=== PATIENT | male | born 1975 | race Caucasian/White ===

== ENCOUNTER 2017-09-14 06:23 | Day surgery (SDC) | payer OTHER ==
[2017-09-13 10:42] VITALS: BMI 34.2
--- NOTE | 2017-09-13 16:38 | HP ---
HISTORY OF PRESENT ILLNESS: Mr. Lazo is a pleasant 42-year-old man who presents for evaluation o f interscapular posterior neck pains for the last 10 years, treated with PT and chiropractic, he has had lower back problems as well. MRI of the C-spine on outside facility reveals moderate to severe c anal stenosis and neural foraminal narrowing at C6-C7 secondary to disk osteophyte complex, which fit s his symptoms rather well. He denies any gait symptoms or arm problems of significant nature. PAST MEDICAL HISTORY: Significant for knee and neck problems. CURRENT MEDICATIONS: Viagra, Flexeril, Robaxin. ALLERGIES: No known drug allergies. PAST SURGICAL HISTORY: Three separate knee surgeries, two on the right, one on the left. ALLERGIES: No known drug allergies. PHYSICAL EXAMINATION: NEUROLOGIC: The patient is alert and oriented x3. Gait is mildly antalgic. Reflexes are equal and present bilaterally at the patella. ASSESSMENT: Cervical radiculopathy. PLAN: Dr. Gonzales met with the patient, reviewed imaging and ultimately advocated for a C6-C7 ACDF. H e explained to the patient the risks, benefits, and alternatives to the procedure. The patient expre ssed understanding and would like to move forward with surgery as discussed. I do believe the patien t is mentally competent and capable of making medical decisions for himself and we will move forward with surgery as planned. Russ Torres PA-C, dictating under Dr. Gonzales.
[2017-09-14] MEDS ORDERED: Fentanyl 100 MCG/2 ML VIAL ONE (06:48)
[2017-09-14] MEDS ORDERED: Midazolam HCl 2 mg/2 ml Vial ONE ×2 (06:48→07:48)
[2017-09-14] MEDS ORDERED: Thrombin 5000 UNITS/5 ML VIAL ONE (06:55)
[2017-09-14] MEDS ORDERED: CEFAZOLIN/Water 2 GM/20 ML SYRINGE ONE ×2 (07:01→13:30)
--- NOTE | 2017-09-14 10:33 | OP ---
DATE OF PROCEDURE: 09/14/2017 SURGEON: Omid Gonzales M.D. BREAKER MACHINE OPERATOR: Russ Torres PA-C INDICATION: Pain. DIAGNOSIS: Cervical radiculopathy. PROCEDURE: Anterior cervical discectomy and fusion C6-7. ANESTHESIA: General. TECHNIQUE: The patient was brought into the operating room and placed under general anesthesia. He was placed on the table in a supine position. A transverse incision was planned over the lateral asp ect of the neck on the right. After prepping and draping and after an appropriate operative pause, t he incision was created. The underlying platysma muscle was identified and incised. A blunt tissue plane anterior to the sternocleidomastoid muscle was used to gain access to the prevertebral space. Self-retaining retractors were placed into the wound. Annulotomy was performed and all disk material as well as anterior and posterior osteophytes were removed. After complete decompression, a 7 mm lo rdotic PEEK cage packed with allograft and autograft material was placed in the interbody space. An anterior cervical plate was then fashioned in front of the spine and secured with a total of 4 fixed screws. Midline and lateral structures were inspected and found to be free from significant trauma. The wound was irrigated. Hemostasis was maintained throughout. The wound was then closed in anatom ic layers and a pressure dressing was applied. There were no known procedural complications.
[2017-09-14] MEDS ORDERED: HYDROcodone/Acetaminophen 5/325 mg Tablet ONE (12:59)
[2017-09-14] MEDS ORDERED: Tamsulosin HCl 0.4 MG CAP ONE (13:19)
[2017-09-14] MEDS ORDERED: Ketorolac Tromethamine 30 MG/ML VIAL ONE (15:41)
[2017-09-14] MEDS ORDERED: Lidocaine 1% PF 5 ML VIAL ONE (15:41)
[2017-09-14] MEDS ORDERED: Ondansetron HCl/PF 4 MG/2 ML Vial ONE (15:41)
[2017-09-14] MEDS ORDERED: Dexamethasone 20 MG/5 ML VIAL ONE (15:41)
[2017-09-14] MEDS ORDERED: Propofol 200 MG/20 ML VIAL ONE (15:41)
[2017-09-14] MEDS ORDERED: Metoclopramide HCl 10 MG/2 ML VIAL ONE (15:41)
[2017-09-14] MEDS ORDERED: Glycopyrrolate 0.2 MG/ML 5 ML SYRINGE ONE (15:41)
[2017-09-14] MEDS ORDERED: diphenhydrAMINE 50 MG/ML VIAL ONE (15:41)
== END 2017-09-14 13:50 | disposition home or self-care (01) ==
LOC: SDC 06:23
PROVIDERS: ATTEND Neurological Surgery
PROC: 0RB30ZZ Excision of Cervical Vertebral Disc, Open Approach (ICD-10-PCS; principal; 2017-09-14)
PROC: 0RG10A0 Fusion of Cervical Vertebral Joint with Interbody Fusion Device, Anterior Approach, Anterior Column, Open Approach (ICD-10-PCS; principal; 2017-09-14)
DX: M54.12 Radiculopathy, cervical region (principal); G47.30 Sleep apnea, unspecified; Z79.899 Other long term (current) drug therapy; Z99.89 Dependence on other enabling machines and devices; Z98.818 Other dental procedure status; Z98.890 Other specified postprocedural states
CPT/HCPCS: 76001; C1713; J0131; J1100; J1200; J1885; J2001; J2250; J2405; J2704; J2765; J3010

== ENCOUNTER 2017-10-27 10:52 | Outpatient (CLI) | payer OTHER ==
--- NOTE | 2017-10-27 11:57 | RAD ---
FOUR VIEWS CERVICAL SPINE: History: M54.12. FINDINGS: AP, lateral, swimmer's and open mouth odontoid view of the cervical spine is obtained. Images demonstrate ACDF with an anterior fusion plate and screws at the C6-7 level. There is some sli ght disc space height loss at C5-6. Small anterior and posterior osteophytes also seen at this level. No other acute fracture is seen. The odontoid is unremarkable. IMPRESSION: Lower cervical ACDF with C5-6 changes of spondylosis. POS: LONI
== END 2017-10-27 10:53 | disposition home or self-care (01) ==
LOC: TBSIIMAG 10:52
PROVIDERS: ATTEND Neurological Surgery
DX: M47.22 Other spondylosis with radiculopathy, cervical region (principal); Z98.1 Arthrodesis status
CPT/HCPCS: 72040